=== PATIENT | female | born 1955 | race Caucasian/White ===

== ENCOUNTER 2024-08-13 16:38 | Emergency (ER) | payer OTHER, SELFPAY ==
[2024-08-13] VITALS (10 sets, daily range): BP systolic 125–150; BP diastolic 54–64; PULSE 69–82; RESP 10–16; TEMP 36.7; O2SAT 98–100
--- NOTE | ~2024-08-13 | CT_ITS ---
EXAMINATION: CT cervical spine wo con DATE: 08/13/2024 17:11 INDICATION: GLF TECHNIQUE: Computed tomography (CT) of the cervical spine was performed without intravenous contrast. Automated exposure control and iterative reconstruction technique were employed. The dose-length pro duct was 160.81 mGy-cm. COMPARISON: None. FINDINGS: Vertebral Body Alignment: Grade 1 anterolisthesis at C3-4. Grade 1 retrolistheses at C5-6 and C6-7. Craniocervical and atlantoaxial alignment: Moderate degenerative change. Alignment intact. Osseous structures/fracture: No evidence of a lytic or blastic process in the visualized spine. No e vidence of acute fracture. Right C2-3 facet fusion. Cervical soft tissues: The paraspinal soft tissues planes are maintained. 1.5 cm left thyroid nodule. Decreased density blood pool. Degenerative changes: Multilevel degenerative disc disease and facet arthropathy. Severe right neural foraminal narrowing at C6-7 secondary to degenerative facet and uncovertebral joint changes. No renata re central canal narrowing. IMPRESSION: No acute fracture detected in the cervical spine. Multilevel grade 1 listheses, presumably on a degenerative basis. Possible anemia. 1.5 cm left thyroid nodule, recommend nonemergent outpatient thyroid ultrasound for further character ization. Reviewed, dictated and finalized at location K. IMPRESSION: No acute fracture detected in the cervical spine. Multilevel grade 1 listheses, presumably on a degenerative basis. Possible anemia. 1.5 cm left thyroid nodule, recommend nonemergent outpatient thyroid ultrasound for further characterization.
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
--- NOTE | 2024-08-13 17:12 | ED.GENADULT ---
HPI - General Adult General Chief complaint: Fall Stated complaint: fall Time Seen by Provider: 08/13/24 16:49 History of Present Illness HPI narrative: This is a 60-year-old female with dementia who is a 1 times baseline presenting after a ground level fall. She fell and struck her head on the ground. Staff denies loss of consciousness. Patient has a hematoma on top of her scalp. Patient has severe dementia cannot provide much useful history. Related Data Allergies Allergy/AdvReac Type Severity Reaction Status Date / Time No Known Allergies Allergy Verified 08/13/24 16:50 Exam Narrative: APPEARANCE: A&O x1, speaks in a very quiet voice Head: Hematoma over left scalp without laceration EYES: EOMI, NOSE: Atraumatic NECK: Trachea midline RESPIRATORY: No increased rate of breathing CTAB CARDIOVASCULAR: RRR, ABDOMINAL: Non-distended MUSCULOSKELETAl: Head to toe trauma exam performed with no areas of pain or traumatic injury NEURO: Alert. Cranial nerves 2-12 grossly intact. Sensation light touch, motor function cerebellar function intact for 4 extremities. Gait exam was normal. SKIN:: Warm, dry. Normal color PSYCHIATRIC: Normal affect Course Vital Signs Vital signs: Vital Signs Temperature 98.1 F 08/13/24 16:44 Pulse Rate 77 08/13/24 16:44 Respiratory Rate 11 L 08/13/24 16:44 Blood Pressure 140/59 L 08/13/24 16:44 Pulse Oximetry 99 08/13/24 16:44 Oxygen Delivery Room Air 08/13/24 16:44 Temperature 98.1 F 08/13/24 16:44 Pulse Rate 77 08/13/24 16:44 Respiratory Rate 11 L 08/13/24 16:44 Blood Pressure 140/59 L 08/13/24 16:44 Pulse Oximetry 99 08/13/24 16:44 Oxygen Delivery Room Air 08/13/24 16:44 Medical Decision Making Vital Signs Vital Signs: Vital Signs Temperature 98.1 F 08/13/24 16:44 Pulse Rate 77 08/13/24 16:44 Respiratory Rate 11 L 08/13/24 16:44 Blood Pressure 140/59 L 08/13/24 16:44 Pulse Oximetry 99 08/13/24 16:44 Oxygen Delivery Room Air 08/13/24 16:44 Temperature 98.1 F 08/13/24 16:44 Pulse Rate 77 08/13/24 16:44 Respiratory Rate 11 L 08/13/24 16:44 Blood Pressure 140/59 L 08/13/24 16:44 Pulse Oximetry 99 08/13/24 16:44 Oxygen Delivery Room Air 08/13/24 16:44 Discharge Plan Discharge Clinical Impression: Fall Patient Disposition: Home Condition: Stable Instructions: Antibiotic Form, Fall Prevention for Older Adults (ED) Additional Instructions: Ranjana was seen after a fall. CT head and C-spine were negative for acute fractures or intracranial hemorrhage. Please return if she develops any new or worsening symptoms. Patient Language: Turkmen
--- OUTSIDE RECORDS SUMMARY | 2024-08-13 18:15 | XMS_ITS | Clinical Summary ---
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 on 2019. Blood 06/13/2024 11:4 0 AM SALES AND TRAINING SPECIALIST 06/13/2024 2:26 PM SALES AND TRAINING SPECIALIST Renetta Archer NP LAB MICROBIOLOGY - GENERAL OR DERABLES Final Result Performing Organization Address [facility]/ZIP Co de Phone Number [address] [place] [address] * Vitamin D 25 hydroxy (06/13/2024 11:40 AM SALES AND TRAINING SPECIALIST) [facility] Vitamin D 25-OH 59.0 30.0 - 80.0 ng/mL Blood 06/13/2024 11:4 0 AM SALES AND TRAINING SPECIALIST 06/13/2024 2:26 PM SALES AND TRAINING SPECIALIST Renetta Archer SUPERVISOR PAINT DEPARTMENT LAB BLOOD ORDERABLES Final Re sult Performing Organization Address [facility] de Phone Number [address] [place] [address] * Hepatitis B Surface Antigen Blood (06/13/2024 11:40 AM SALES AND TRAINING SPECIALIST) [facility] HepBsAg Nonreactive Nonreactive Blood 06/13/2024 11:4 0 AM SALES AND TRAINING SPECIALIST 06/13/2024 2:26 PM SALES AND TRAINING SPECIALIST Result [facility] Renetta Archer NP LAB MICROBIOLOGY - GENERAL OR DERABLES Final Result Performing Organization Address [facility] de Phone Number [place] [id number] [place] [address] * Hemoglobin A1c (06/13/2024 11:40 AM SALES AND TRAINING SPECIALIST) [facility] Hgb A1C 5.2 4.0 - 5.6 % Comment:Testing performed by : [address] [address] Estimated Average Glucose 103 mg/dL JOSEPH Comment: The ADA recommends reporting an estimated Average Glucose (eAG) with all Hemoglobin A1c results using the equation derived from a study of 507 normal and diabetic adults. Minority populations were underrepresented and children were not included. (Diabetes Care 31:1295-4074, 2008). The eAG is not equivalent to a fasting glucose. Testing performed by: [address] [address] Blood 06/13/2024 11:4 0 AM SALES AND TRAINING SPECIALIST 06/13/2024 11:58 AM SALES AND TRAINING SPECIALIST Renetta Archer SUPERVISOR PAINT DEPARTMENT LAB BLOOD ORDERABLES Final Re sult JOSEPH [address] [facility] Department [place] [address] * Lipid panel (06/13/2024 11:40 AM SALES AND TRAINING SPECIALIST) Cholesterol 156 30 - 199 mg/dL Comment: Interpretive Data Ages < or = 19 years Acceptable: <170 mg/dL Borderline high: 170-199 mg/dL High: >or= 200 mg/dL Ages > or = 20 years Desirable: <200 mg/dL Borderline high: 200-239 mg/dL High: >or= 240 mg/dL Literature References: 1. Expert Panel on Integrated Guidelines for Cardiovascular Health and Risk Reduction in Children and Adolescents. Pediatrics 2011;128:S213 2. NCEP Expert Panel. Circulation 2004;110:227 Current Interpretive Data was last revised on 2017. Testing performed by: [address] [address] Triglycerides 85 <=149 mg/dL JOSEPH Comment: Interpretive Data Ages < or = 9 years Acceptable: <75 mg/dL Borderline high: 75-99 mg/dL High: >or= 100 mg/dL Ages 10 to 20 years Acceptable: <90 mg/dL Borderline high: 90-129 mg/dL High: >or= 130 mg/dL Ages > or = 20 years Desirable: <150 mg/dL Borderline high: 150-199 mg/dL High: 200-499 mg/dL Very high: >or= 499 mg/dL Literature References: 1. Expert Panel on Integrated Guidelines for Cardiovascular Health and Risk Reduction in Children and Adolescents. Pediatrics 2011;128:S213 2. NCEP Expert Panel. Circulation 2004;110:227 Current Interpretive Data was last revised on 2017. Testing performed by: [address] [address] HDL 60 >=40 mg/dL JOSEPH Comment: Interpretive Data Ages < or = 19 years Acceptable: >45 mg/dL Borderline low: 40-45 mg/dL Low: <40 mg/dL Ages > or = 20 years Desirable: >or= 60 mg/dL Low: <40 mg/dL Literature References: 1. Expert Panel on Integrated Guidelines for Cardiovascular Health and Risk Reduction in Children and Adolescents. Pediatrics 2011;128:S213 2. NCEP Expert Panel. Circulation 2004;110:227 Current Interpretive Data was last revised on 2017. Testing performed by: [address] [address] LDL, calculated 80 <=129 mg/dL JOSEPH QUEEN Comment: Interpretive Data Ages < or = 19 years Acceptable: <110 mg/dL Borderline high: 110-129 mg/dL High: >or= 130 mg/dL Ages > or = 20 years Optimal: <100 mg/dL Near optimal: 100-129 mg/dL Borderline high: 130-159 mg/dL High: >160 mg/dL Calculated using the Omi LDL-C estimating equation. This equation was implemented on 2023. Prior to this date LDL-C was estimated using the Friedewald equation. Literature References: 1. Expert Panel on Integrated Guidelines for Cardiovascular Health and Risk Reduction in Children and Adolescents. Pediatrics 2011;128:S213 2. NCEP Expert Panel. Circulation 2004;110:227 3. Omi Pacheco et al. EDUARDO Cardiol. 2019August 31;5(5):540-548. doi: 10.1001/[email or web address].2020.0013 Current Interpretive Data was last revised on 2023. Testing performed by: [address] [address] Non-HDL Cholesterol 96 mg/dL JOSEPH Comment: Interpretive Data Ages < or = 19 years Acceptable: <120 mg/dL Borderline high: 120-144 mg/dL High: >145 mg/dL Ages > or = 20 years When triglycerides are >200 mg/dL, Non-HDL cholesterol is a secondary target of therapy with treatment goals that are 30 mg/dL greater than the LDL cholesterol target. Literature References: 1. Expert Panel on Integrated Guidelines for Cardiovascular Health and Risk Reduction in Children and Adolescents. Pediatrics 2011;128:S213 2. NCEP Expert Panel. Circulation 2004;110:227 Current Interpretive Data was last revised on 2017. Testing performed by: [address] [address] Chol/HDL ratio 3 JOSEPH Comment:Testing performed by : [address] [address] Blood 06/13/2024 11:4 0 AM SALES AND TRAINING SPECIALIST 06/13/2024 11:58 AM SALES AND TRAINING SPECIALIST Narrative JOSEPH - 06/13/2024 12:36 PM SALES AND TRAINING SPECIALIST Has the patient been fasting for 8 hours or more?->Yes Renetta Archer SUPERVISOR PAINT DEPARTMENT LAB BLOOD ORDERABLES Final Re sult JOSEPH [address] [facility] Department [place] [address] * Comprehensive metabolic panel (06/13/2024 11:40 AM SALES AND TRAINING SPECIALIST) Sodium 138 135 - 145 mmol/L Comment:Testing performed by : [address] [address] Potassium, pl 4.3 3.3 - 4.9 mmol/L JOSEPH Comment:Testing performed by : [address] [address] Chloride 101 97 - 110 mmol/L JOSEPH Comment:Testing performed by : [address] [address] CO2 27 22 - 32 mmol/L JOSEPH Comment:Testing performed by : [address] [address] Anion gap 10 2 - 15 mmol/L JOSEPH Comment:Testing performed by : [address] [address] BUN 24 6 - 25 mg/dL JOSEPH Comment:Testing performed by : [address] [address] Creatinine 0.74 0.60 - 1.10 mg/dL JOSEPH Comment:Testing performed by : [address] [address] Glucose 169 70 - 199 mg/dL JOSEPH Comment: Interpretive Data Fasting glucose >/= 126 mg/dl is diagnostic for diabetes. Fasting is defined as no caloric intake for at least 8 hours. Fasting glucose between 100 mg/dl to 125 mg/dl is diagnostic of prediabetes. In a patient with classic symptoms of hyperglycemia or hyperglycemic crisis, a random glucose >/= 200 mg/dl is diagnostic for diabetes. In the absence of unequivocal hyperglycemia, results should be confirmed by repeat testing. The classification and Diagnosis of Diabetes Diabetes Care 202; 46: S19-S40. Current interpretive data was last revised 2022. Testing performed by: [address] [address] Calcium 10.1 8.5 - 10.3 mg/dL JOSEPH Comment:Testing performed by : [address] [address] Bilirubin, total 0.3 0.1 - 1.2 mg/dL JOSEPH Comment:Testing performed by : [address] [address] Protein, pl 7.5 6.5 - 8.5 g/dL JOSEPH Comment:Testing performed by : [address] [address] Albumin 4.4 3.5 - 5.0 g/dL JOSEPH Comment:Testing performed by : [address] [address] Alk phos 40 40 - 130 Units/L JOSEPH Comment:Testing performed by : [address] [address] ALT 14 7 - 45 Units/L JOSEPH Comment:Testing performed by : [address] [address] AST 21 10 - 45 Units/L JOSEPH Comment:Testing performed by : [address] [address] Blood 06/13/2024 11:4 0 AM SALES AND TRAINING SPECIALIST 06/13/2024 11:58 AM SALES AND TRAINING SPECIALIST us Renetta Archer NP LAB BLOOD ORDERABLES Final Re sult JOSEPH [address] [facility] Department [place] [address] from Last 3 Months Insurance [facility] Member Subscriber Plan / Payer (Ef fective 2020-Present) Name:Maria De Jesus Reed Relation to Subscriber:Self Name:Maria De Jesus Reed Payer ID:[id number] (NAIC) Type:MEDICARE RISK OTHER Address: [place] [id number] [facility] Advance Directives For more information, please contact: [phone] Documents on File Type Date Recorded Patient Blocker Hand Expl anation Power of Clay Plant Treater 10/06/2023 9:55 AM * LIMITED - No CPR (Latest Code Status on File) Date Activated Date Inactivated Comments 10/05/2023 6:45 AM 2023 9:36 PM Question Answer Comments Provide aggressive medical m anagement before a full cardiopulmonary arrest occurs. Use antibiotics, IV Fluids, and medical treatment unless specifically selected below: No intubationNo non-invasive ventilationNo cardioversion * Full Code Date Activated Date Inactivated Comments 10/04/2023 9:22 PM 10/05/2023 6:45 AM Care Teams Geodetic Surveyor Relationship Specialty Start Date End Date Jaqueline Kay DO [address] [place] [id number] PCP - General Internal Medicine 07/28/24
--- OUTSIDE RECORDS SUMMARY | 2024-08-13 18:15 | XMS_ITS | Clinical Summary ---
Author Organization [facility] Address [facility] [place] [address] Care Team Providers Care Data Processing Auditor Name Role Phone Renetta Archer MICROFICHE CAMERA OPERATOR Primary Care Provider [phone] Allergies No known active allergies Medications ARIPiprazole (ABILIFY) 5 MG tablet Take 1 tablet (5 mg total) by mouth daily. 30 tablet 04/17/2024 Active Social History Tobacco Use Types Packs/Day Years Used Date Smoking Tobacco: Never Smokeless Tobacco: Never Tobacco Cessation:Counseling Given: Not Answered Alcohol Use Standard Drinks/Week Comments Yes 0 (1 standard drink = 0.6 oz pur e alcohol) Comments Unknown Sex and Gender Information Value Date Recorded Sex Assigned at Not on file Legal Sex Female 9:38 AM CDT Gender Identity Not on file Sexual Orientation Not on file Last Filed Vital Signs Vital Sign Reading Time Taken Comments Blood Pressure 152/67 04/17/2024 7:23 AM SPECIFICATION WRITER Pulse 67 04/17/2024 7:23 AM SPECIFICATION WRITER Temperature 36.8 C (98.2 F) 04/17/2024 12:49 AM SPECIFICATION WRITER Respiratory Rate 16 04/17/2024 7:23 AM SPECIFICATION WRITER Oxygen Saturation 100% 04/17/2024 7:23 AM SPECIFICATION WRITER Inhaled Oxygen Concentration - - Weight 63.5 kg (140 lb) 04/17/2024 7:23 AM SPECIFICATION WRITER Height 167.6 cm (5' 6 ) 04/17/2024 7:23 AM SPECIFICATION WRITER Body Mass Index 22.6 04/17/2024 7:23 AM SPECIFICATION WRITER Plan of Treatment Health Maintenance Due Date Last Done Comments Colorectal Cancer Screening Colonoscopy (10 Years) 1955 Hepatitis C 10/11/1973 DTaP, Tdap and Td Vaccines ( 1 - Tdap) 10/11/1974 Mammogram Screening 1995 Zoster Vaccines (1 of 2) 10/11/2005 Annual Medicare Wellness Visit 10/11/2020 Dexa Scan (General) 10/11/2020 Pneumococcal Vaccine: 50+ Ye ars (1 of 1 - PCV) 10/11/2020 COVID-19 Vaccine (1 - 2023-2 5 season) 2024 RSV Immunization or 60+ Years (1 - 1-dose 75+ series) 10/11/2030 Meningococcal B Vaccine Aged Out No l onger eligible based on patient's age to complete this topic Meningococcal Vaccine Aged Out No samir dimple eligible based on patient's age to complete this topic RSV Immunizations Under 20 Months Aged Out No longer eligible based on patient's age to complete this topic Insurance [employer] Care Teams Data Processing Auditor Relationship Specialty Start Date End Date Renetta Archer FNP [address] [place] [address], [address] [place] [address] PCP - General NURSE PRACTITIONER 04/17/24
--- OUTSIDE RECORDS SUMMARY | 2024-08-13 18:15 | XMS_ITS | Continuity of Care Document ---
Author Organization [employer] [place] Address [address] [place] [address] Phone Care Team Providers Care Director Video Name Role Phone Jaqueline Kay DO Unavailable Unavailable Allergies, Adverse Reactions, Alerts Substance Reaction Status Criticality No Known Allergies Active No Inform ation Medications Medication Instructions Dosage Effective Dates (start - stop) Status Comments ferrous sulfate 325 mg (65 mg iron) tablet take 1 by Oral route every day 1 - Active magnesium 400 mg (as magnesium oxide) tablet take 1 tablet by oral route every day 1 tablet - Active ashwagandha extract 120 mg capsule - Active Abilify 10 mg tablet take 1 tablet by or al route every day 10 MG - Active Vitamin D3 50 mcg (2,000 unit) capsule take 1 by Oral route once 1 - Active B Complex Plus Vitamin C 15 mg-10 mg-50 mg-5 mg-300 mg capsule take 1 capsule by oral route every day 1 capsule - Active Procedures Procedure Date Pt inelig neg scrn depres OFFICE [id number] Visit Complexity Inherent To E/M 2024 BODY MASS INDEX DOCD SYST BP LT 130 MM HG DIAST BP < 80 MM HG Advance Directives Directive Yes / No Effective Date File Name Other Directive No 01/10/2021 N/A WARNING:The information contained in this section is historical and is provided for information only and does not constitute a legal document or any assurance that the information is still accurate. Please verify the information with the gong of the legal document before using it for clinical purposes. Encounters Encounter Description Practice Location Reason(s) For Visit Diagnoses Date Provider Providers Copied on Encounter [facility], [address], [place], [place], [id number] , tel: [phone] [facility] No Information 5 Rahul Parsons. [address] [place] [address], [id number] , [place]. tel: [phone] OFFICE [id number] MP-MED [facility], [address], [place], [place], [id number] , tel: [phone] [facility] New patient (chief complaint)C hronic Conditions (chief complaint) Wernicke's encephalopathyDrug induced subacute dyskinesiaIron deficiency anemia, unspecifiedAbnormal weight loss Aug- 5 Rahul Parsons. [address] [place] [address], [id number] , [place]. tel: [phone] Referring Provider: Jaqueline Yanez, [address] [place] [address], [id number] . tel:[phone] Family History Family Member Type Diagnosis Age At Onset No Information Payers Payer name Insurance type Covered alliance party ID Authorluly browne(s) [facility] [id number] Social History Type Description Quantity Date Captured Comments Alcohol Use Details Unknown Caffeine Use Details Unknown Tobacco Use Status No Information Smoking Status No Information Sex Female Chief Complaint And Reason For Visit No Information Reason For Referral Reason For Referral No Information Plan Of Treatment Date Type Action Status Appointment Maria De Jesus Reed BOOKED History Of Present Illness Encounter Date Complaint History Of Prese nt Illness New patient last PCP:Marine Miller seen 06/16/24pt due for:Fall risk/urinary incontinence information provided to patient Adv care planning - pt's daughter will bring copyColonoscopy - pt denies recentBone density - pt denies recentMammogram - pt denies recentRecent visits:Psych - Dr Aubrey Henao - [facility] appt:Neurology - Dr Henao - 01/23/25Neuro psychology - Dr Margy Patton - 08/21/24vaccinations due:COVID - pt refusesCOVID booster - pt refusesPneumo - pt has not received TD/TDAP - pt's daughter states pt has not received recentlySHINGRIX - pt has not receivedRSV - pt has not received Chronic Conditions *See Chronic Conditions HPI Functional Status Date Functional Assessmen t No Information Instructions Date Instruction Additional Infor mation We will continue to monitor weight moving to [facility] hospit[facility] should help Related to Abnormal weight loss continue with the or al ironlevels will be monitored Related to Iron deficiency anemia, unspecified see above Related to Drug induced subacute dyskinesia no change in medicat ion keep scheduled appointment with neuropysch and psych for med changescall me with questions or concerns Related to Wernicke's encephalopathy Disease process Fall Risk Prevention Urinary Incontinence Assessments Type Assessment Date No Information Patient Care Teams Name Effective Dates (start - stop) Status Members No Information
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
--- OUTSIDE RECORDS SUMMARY | 2024-08-13 18:15 | XMS_ITS | Clinical Summary ---
Author Organization [facility] [place] Address [address] [place] [address] Care Team Providers Care Activity Aid Name Role Phone Unavailable Primary Care Provider Unavailabl e Allergies No known active allergies Medications magnesium oxide (MAG-OX) 400 mg (241.3 mg magnesium) tablet Take 1 tablet (400 mg total) by mouth daily 90 Tablet 4 Active thiamine (VITAMIN B-1) 100 mg tablet Take 1 tablet (100 mg total) by mouth daily 90 Tablet 4 Active polyethylene glycol 3350 (MIRALAX) 17 gram/dose Powder Take 17 g by mouth daily as needed for Constipation 238 Gram 4 Active carbamide peroxide (Debrox) 6.5 % Drops Administer 5 drops into each ear 2 (two) times a day 15 mL 4 Active fluconazole (DIFLUCAN) 200 mg tablet Take 1 tablet (200 mg total) by mouth daily for 4 days 4 Tablet 12/17/2023 8:16 AM CDT 4 Active ofloxacin (FLOXIN) 0.3 % Drops Administer 3 to 4 drops in both ears every 12 hours for 7 days 5 mL 01/25/2024 8:21 AM CDT 4 Active ARIPiprazole (ABILIFY) 5 mg tablet Take 1 Tablet (5 mg) by mouth daily. 30 Tablet 04/18/2024 9:20 AM METEOROLOGIST IN CHARGE 4 Active ARIPiprazole (ABILIFY) 10 mg tablet Take 1 tablet (10 mg total) by mouth daily 30 Tablet 3 08/08/2024 3:27 PM CDT 5 Active ferrous sulfate 325 mg (65 mg iron) tablet Take 1 tablet (325 mg total) by mouth daily with breakfast 30 Tablet 11 07/23/2024 1:07 PM CDT 5 Active Encounters Date Type Department Care Team Description 07/19/2024 External Device Data [facility] ABSTRACTION Provider, Abstract 07/08/2024 External Device Data [facility] ABSTRACTION Provider, Abstract 07/07/2024 External Device Data [facility] ABSTRACTION Provider, Abstract 07/05/2024 External Device Data [facility] ABSTRACTION Provider, Abstract 07/04/2024 External Device Data [facility] ABSTRACTION Provider, Abstract 06/20/2024 External Device Data [facility] ABSTRACTION Provider, Abstract 05/24/2024 External Device Data [facility] ABSTRACTION Provider, Abstract 05/24/2024 External Device Data [facility] ABSTRACTION Provider, Abstract 05/17/2024 External Device Data [facility] ABSTRACTION Provider, Abstract from Last 3 Months Social History Tobacco Use Types Packs/Day Years Used Date Smoking Tobacco: Never Assessed Comments Unknown Sex and Gender Information Value Date Recorded Sex Assigned at Not on file Legal Sex Female 2:07 PM CDT Gender Identity Not on file Sexual Orientation Not on file Plan of Treatment Health Maintenance Due Date Last Done Comments DTAP/TDAP/TD VACCINES (1 - Tdap) 10/11/1974 BREAST CANCER SCREENING 1995 COLORECTAL SCREENING 10/11/2000 Colorectal Cancer Screening 10/11/2000 FIT-DNA Q 3 years 10/11/2000 FIT/FOBT Q 1 year 10/11/2000 Flex Sig/CT Colonography Q 5 years 10/11/2000 PNEUMOCOCCAL VACCINE 50+ YEARS (1 of 1 - PCV) 10/12/19 06 ZOSTER VACCINE (1 of 2) 10/11/2005 OSTEOPOROSIS SCREENING 10/11/2020 INFLUENZA VACCINE (#1) 2023 RSV VACCINE (60+ or ) (1 - 1-dose 75+ series) 10/11/2030 Insurance RX [employer] Medicare Part D RX [employer] (INTERNAL) [facility]
--- NOTE | 2024-08-13 18:27 | PC.NURSE ---
Daughter notified, unable to take mother back to facility.
== END 2024-08-13 21:36 ==
LOC: ANHED 18:14
PROVIDERS: Emergency Provider Emergency Medicine
DX: S00.03XA Contusion of scalp, initial encounter (principal); F03.90 Unspecified dementia, unspecified severity, without behavioral disturbance, psychotic disturbance, mood disturbance, and anxiety; W19.XXXA Unspecified fall, initial encounter
CPT/HCPCS: 70450; 72125; 99284

== ENCOUNTER 2024-09-21 08:21 | Emergency (ER) | payer OTHER, SELFPAY ==
--- NOTE | ~2024-09-21 | XR_ITS ---
XR chest 1V portable Ordering provider: Beata Camp III, DO History: 68 years Female with . aspirated breakfast CONFUSION NOTED . Comparison: None. FINDINGS: MEDIASTINUM: The cardiac silhouette is not enlarged. LUNGS: No infiltrates, effusions or pneumothorax. OTHER: No free air under the diaphragm. Possible old fracture in the left fifth rib. Evaluation for t enderness in the area advised. IMPRESSION: No acute cardiopulmonary pathology. Possible healing fracture in the left fifth rib. Reviewed, dictated and finalized at location A.
[2024-09-21 08:19] VITALS: BP 141/71; PULSE 87; RESP 16; TEMP 37; O2SAT 100
--- OUTSIDE RECORDS SUMMARY | 2024-09-21 08:31 | XMS_ITS | Continuity of Care Document ---
Author Organization [facility] Address [address] [place] [address] Phone Care Team Providers Care Environmental Protection Specialist Name Role Phone Jaqueline Kay DO Unavailable [...] Date Pt inelig neg scrn depres OFFICE [id number] Visit Complexity Inherent To E/M 2024 BODY MASS INDEX DOCD SYST BP LT 130 MM HG DIAST BP < 80 MM HG Advance Directives Directive Yes / No Effective Date File Name Life Support Not Answered N/A N/A Intubation Not Answered N/A N/A Antibiotics Not Answered N/A N/A IV Fluid Support Not Answered N/A N/A Tube Feed Not Answered N/A N/A Other Directive N/A N/A WARNING:The information contained in this section is historical and is provided for information only and does not constitute a legal document or any assurance that the information is still accurate. Please verify the information with the gong of the legal document before using it for clinical purposes. Encounters Encounter Description Practice Location Reason(s) For Visit Diagnoses Date Provider Providers Copied on Encounter [facility], [address], [place], [place], [id number] , tel: [phone] [facility] Dysphagia, unspecified type 0- 5 Rahul Parsons. [address] [place] [address], [id number] , [place]. tel: [phone] OFFICE [id number] -MED [facility], [address], [place], [place], [id number] , tel: [phone] [facility] New patient (chief complaint)C hronic Conditions (chief complaint) Wernicke's encephalopathyDrug induced subacute dyskinesiaIron deficiency anemia, unspecifiedAbnormal weight loss Aug-0 5 Rahul Parsons. [address] [place] [address], [id number] , . tel: [phone] Referring Provider: Jaqueline Yanez, [address] [place] [address], [id number] . tel:[phone] Family History Family Member Type Diagnosis Age At Onset No Information Payers Payer name Insurance type Covered republican ID Authoriza tiasa(s) [facility] [id number] Social History Type Description Quantity Date Captured Comments Alcohol Use Details Unknown Caffeine Use Details Unknown Tobacco Use Status No Information Smoking Status No Information Sex Female Chief Complaint And Reason For Visit No Information Reason For Referral Reason For Referral No Information Plan Of Treatment Date Type Action Status Referral Referred To: [address] [place] [address], [address] [id number] Ordered: Modified barium swallow with speech Appointment date/timeframe: 12/20/2024 ordered History Of Present Illness Encounter Date Complaint History Of Prese nt Illness New patient last PCP:Marine Miller seen 06/16/24pt due for:Fall risk/urinary incontinence information provided to patient Adv care planning - pt's daughter will bring copyColonoscopy - pt denies recentBone density - pt denies recentMammogram - pt denies recentRecent visits:Psych - Dr Aubrey Henao - [facility] appt:Neurology - Dr Henao - 01/23/25Neuro psychology [...] will continue to monitor weight [place] should help Related to Abnormal weight loss [...] Prevention Urinary Incontinence Assessments Type Assessment Date assessment Dysphagia, unspecified type Patient Care Teams Name Effective Dates (start - stop) Status Members No Information
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
--- OUTSIDE RECORDS SUMMARY | 2024-09-21 08:31 | XMS_ITS | Encounter Summary ---
Author Organization [facility] Address [address] [place] [address] Care Team Providers Care Stencil Cutter Machine Name Role Phone Unavailable Primary Care Provider Unavailabl e Encounter Details Date Type Department Care Team (Late st Contact Info) Description 09/19/2024 External Device Data [facility] ABSTRACTION Provider, Abstract NO ADDRESS ON FILE Social History Tobacco Use Types Packs/Day Years Used Date Smoking Tobacco: Never Assessed Comments Unknown Sex and Gender Information Value Date Recorded Sex Assigned at Not on file Legal Sex Female 2:07 PM CDT Gender Identity Not on file Sexual Orientation Not on file documented as of this encounter Plan of Treatment Not on file documented as of this encounter Visit Diagnoses Not on filedocumented in this encounter
--- OUTSIDE RECORDS SUMMARY | 2024-09-21 08:31 | XMS_ITS | Clinical Summary ---
Author Organization [facility] [employer] [facility] Address [address] [place] [place] [address] Care Team Providers Care Accounting Manager Name Role Phone Unavailable Primary Care Provider [...] mouth daily. 30 Tablet 04/18/2024 9:20 AM ORNAMENTAL METAL ERECTOR 4 Active ARIPiprazole (ABILIFY) 10 mg tablet Take 1 tablet (10 mg total) by mouth daily 30 Tablet 3 08/08/2024 3:27 PM CDT 5 Active ferrous sulfate 325 mg (65 mg iron) tablet Take 1 tablet (325 mg total) by mouth daily with breakfast 30 Tablet 11 07/23/2024 1:07 PM CDT 5 Active Encounters Date Type Department Care Team Description 09/19/2024 External Device Data [facility] ABSTRACTION Provider, Abstract 07/19/2024 External Device Data STL ABSTRACTION Provider, [...]
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
--- NOTE | 2024-09-21 08:52 | ED_ITS ---
HPI - Skin/Abscess/Foreign Bdy General Chief complaint: Skin/Abscess/Foreign Body Stated complaint: choked on breakfast now coughing Time Seen by Provider: 09/21/24 08:24 History of Present Illness HPI narrative: Pt apparently choked on breakfast this morning and was able to express the food without any intervention. Pt is no longer coughing and in no distress but was sent here to check for aspiration. Related Data Allergies Allergy/AdvReac Type Severity Reaction Status Date / Time No Known Allergies Allergy Verified 09/21/24 08:25 Review of Systems Review of Systems: All systems reviewed & are unremarkable except as noted in HPI and below Exam Const: General: healthy appearing and no acute distress Limitations: altered mental status HENMT: Mouth: Yes Normal oral and palatal mucosa present Throat: posterior oropharynx normal Chest: Chest palpation & inspection: normal inspection of the chest Resp: Effort & Inspection: normal respiratory effort Auscultation: clear to auscultation bilaterally Cardio: Rate: regular rate Rhythm: regular rhythm GI: GI Palp: Yes Soft to palpation Auscultation: normal bowel sounds Skin: General skin exam: normal color Rashes: no rashes Wounds: no wounds Neuro: General: moves all extremities, no meningeal signs and no focal motor deficits Speech: normal speech Extrem: General: normal to inspection and no clubbing, cyanosis or edema Psych: Mental Status: mental status grossly normal Affect: normal affect Attitude: cooperative Course Vital Signs Vital signs: Vital Signs Temperature 98.6 F 09/21/24 08:19 Pulse Rate 87 09/21/24 08:19 Respiratory Rate 16 09/21/24 08:19 Blood Pressure 141/71 H 09/21/24 08:19 Pulse Oximetry 100 09/21/24 08:19 Oxygen Delivery Room Air 09/21/24 08:19 Temperature 97.7 F 09/21/24 09:35 Pulse Rate 78 09/21/24 09:35 Respiratory Rate 16 09/21/24 09:35 Blood Pressure 128/68 09/21/24 09:35 Pulse Oximetry 100 09/21/24 09:35 Oxygen Delivery Room Air 09/21/24 08:19 MDM - Skin/Abscess/Foreign Bdy MDM Narrative Medical decision making narrative: Pt apparently choked this morning but now in no distress with normal exam. Will get cxr but doubt will show any signs of aspiration Discharge Plan Discharge Clinical Impression: Choking Patient Disposition: [place] Detention/Asst Living Condition: Stable Instructions: Antibiotic Form, How to Perform the Heimlich Maneuver (ED), Food Impaction (ED) Patient Language: Indian Follow-up/Referrals: UNKNOWN,DOCTOR [Primary Care Provider] -
[2024-09-21 09:35] VITALS: BP 128/68; PULSE 78; RESP 16; TEMP 36.5; O2SAT 100
== END 2024-09-21 10:10 ==
PROVIDERS: Emergency Provider Emergency Medicine
DX: T17.928A Food in respiratory tract, part unspecified causing other injury, initial encounter (principal); W44.F3XA Food entering into or through a natural orifice, initial encounter
CPT/HCPCS: 71045; 99283